=== PATIENT | male | born 1970 | race American Indian/Alaskan Native ===

== ENCOUNTER 2021-07-14 09:47 | Emergency (ER) | payer MEDICAID ==
[2021-07-14] MEDS ORDERED: MORPHINE 4 MG/1 ML INJ IM ONE (10:35)
[2021-07-14] MEDS ORDERED: ONDANSETRON 4 MG/2 ML INJ IM ONE (10:35)
--- NOTE | 2021-07-14 10:40 | Emergency Department Report ---
ED Extremity Problem HPI - General Chief complaint: Extremity Problem,Nontraumatic Stated complaint: RT LEG SWOLLEN/PAIN Time Seen by Provider: 07/14/21 10:22 Source: patient Mode of arrival: Ambulatory Limitations: No Limitations - History of Present Illness Initial comments: Patient is 51 years old morbidly obese female with history of hypertension, d efibrillator. Patient presented to the ER complaining of right knee pain has been going on for 3 to 4 days. Patient also noticed that some swelling around the knee. He denied any leg pain or thigh pain. He stated the pain is just localized to the right knee. He denied any fever or chills. Patient also denied any chest pain or shortness of breath. Patient stated that he had history of arthritis. MD Complaint: extremity pain, joint paint -: days(s) Location: right, knee Severity scale (0 -10): 10 Quality: dull Consistency: intermittent Improves with: immobilization Worsens with: walking Associated Symptoms: denies other symptoms - Related Data Allergies Allergy/AdvReac Type Severity Reaction Status Date / Time No Known Allergies Allergy Unverified 07/14/21 09:51 ED Review of Systems ROS: Stated complaint: RT LEG SWOLLEN/PAIN Other details as noted in HPI Comment: All other systems reviewed and negative Constitutional: denies: chills, fever Respiratory: denies: cough, shortness of breath, SOB with exertion Cardiovascular: denies: chest pain, palpitations Gastrointestinal: denies: abdominal pain, nausea, vomiting Musculoskeletal: denies: back pain Neurological: denies: headache, weakness, numbness, paresthesias, confusion ED Past Medical Hx - Social History Smoking Status: Never Smoker ED Physical Exam - General Limitations: No Limitations General appearance: alert (VITAL SIGNS: Within normal limits.GENERAL: No acute distress, non-toxic appearance. HEAD: Normal with no signs of head trauma.EYES: PERRLA, EOMI, conjunctiva normal, no discharge. EARS: Hearing grossly intact.NOSE: Normal.THROAT: Oropharynx is normal. NECK: Normal range of miguel), in no apparent distress - Head Head exam: Present: atraumatic, normocephalic, normal inspection - Eye Eye exam: Present: normal appearance - ENT ENT exam: Present: normal exam, normal orophraynx, mucous membranes moist - Neck Neck exam: Present: normal inspection, full ROM. Absent: tenderness, meningismus - Respiratory Respiratory exam: Present: normal lung sounds bilaterally - Cardiovascular Cardiovascular Exam: Present: regular rate, normal rhythm, normal heart sounds - GI/Abdominal GI/Abdominal exam: Present: soft, normal bowel sounds. Absent: distended, tenderness, guarding, rebound, rigid, mass, bruit, pulsatile mass, hernia - Extremities Exam Extremities exam: Present: normal capillary refill, joint swelling. Absent: tenderness, pedal edema, calf tenderness - Expanded Lower Extremity Exam Right Knee exam: Present: normal inspection, tenderness, swelling. Absent: full ROM, abrasion, laceration, ecchymosis, deformity Lower Leg exam: Present: normal inspection, full ROM. Absent: tenderness Ankle exam: Present: normal inspection, full ROM. Absent: tenderness, swelling - Back Exam Back exam: Present: normal inspection, full ROM. Absent: CVA tenderness (R), CVA tenderness (L) - Neurological Exam Neurological exam: Present: alert, oriented X3, CN II-XII intact. Absent: motor sensory deficit - Psychiatric Psychiatric exam: Present: normal mood - Skin Skin exam: Present: warm, intact, normal color ED Course Vital Signs 07/14/21 07/14/21 09:54 10:23 Temperature 98.3 F 97.8 F Pulse Rate 83 89 Respiratory 20 20 Rate Blood Pressure 165/110 Blood Pressure 181/98 [Right] O2 Sat by Pulse 99 99 Oximetry ED Medical Decision Making - Radiology Data Radiology results: report reviewed - Medical Decision Making Patient is 51 years old morbidly obese female with history of hypertension, defibrillator. Patient presented to the ER complaining of right knee pain has been going on for 3 to 4 days. Patient also noticed that some swelling around the knee. He denied any leg pain or thigh pain. He stated the pain is just localized to the right knee. He denied any fever or chills. Patient also denied any chest pain or shortness of breath. Patient stated that he had history of arthritis. Patient received morphine and Zofran. Right knee x-ray showed moderate effusion. I believe this is most likely from arthritis. I do not believe there is any evidence of septic arthritis however patient advised to closely follow- up with his primary care physician in the next 2 to 3 days and to return to the ER if he develop any new symptoms. Patient also given prescription for Naprosyn, tramadol and Zofran. Critical care attestation.: If time is entered above; I have spent that time in minutes in the direct care of this critically ill patient, excluding procedure time. ED Disposition Clinical Impression: Acute knee pain, Osteoarthritis Disposition: 01 HOME / SELF CARE / HOMELESS Is pt being admited?: No Condition: Stable Instructions: Acute Knee Pain, Adult, Osteoarthritis Referrals: PRIMARY CARE,MD [Primary Care Provider] - 3-5 Days
--- NOTE | 2021-07-14 11:23 | XRay Report ---
Right knee 3 views INDICATION: Right knee pain IMPRESSION: Moderate right knee effusion. No fracture identified. Signer Name: Carlo Bullock MD Signed: 07/14/2021 11:18 AM Workstation Name: [id number]
[2021-07-14 12:29] VITALS: BP 160/99
== END 2021-07-14 12:23 | disposition home or self-care (01) ==
LOC: ED 09:47
DX: M17.11 Unilateral primary osteoarthritis, right knee (principal); M25.561 Pain in right knee
CPT/HCPCS: 73562; 96372; 99283; J2270; J2405